=== PATIENT | female | born 1980 | race Two or more races ===

== ENCOUNTER 2018-09-04 13:02 | Inpatient (IN) | payer OTHER ==
[~2018-09-04] VITALS: Ht 162.6 cm; Wt 3.2 kg
[2018-09-17] MEDS ORDERED: PRENATAL 19 TA1 EAC1 (11:51)
== END 2018-09-20 14:36 | disposition home or self-care (01) | DRG 788 ==
LOC: LDR 09-15 13:02 → OB/GYN 09-16 06:29 → LDR 09-16 06:29 → OB/GYN 09-17 04:04
PROVIDERS: Obstetrics & Gynecology
PROC: 3E033VJ Introduction of Other Hormone into Peripheral Vein, Percutaneous Approach (ICD-10-PCS; 2018-09-16)
PROC: 4A1HXCZ Monitoring of Products of Conception, Cardiac Rate, External Approach (ICD-10-PCS; 2018-09-16)
PROC: 10D00Z1 Extraction of Products of Conception, Low, Open Approach (ICD-10-PCS; principal; 2018-09-17 07:00)
DX: O82 Encounter for cesarean delivery without indication (principal); Z3A.40 40 weeks gestation of pregnancy; Z37.0 Single live birth